=== PATIENT | female | born 1950 | race Caucasian/White ===

== ENCOUNTER → 2017-02-09 | Outpatient (REF) | payer MEDICARE, SELFPAY | LOC: M LAB REF 13:51 | DX: L82.1 Other seborrheic keratosis (principal) | CPT/HCPCS: 88305 ==

== ENCOUNTER → 2019-05-28 | Outpatient (CLI) | payer MEDICARE ==
--- NOTE | 2019-05-30 02:28 | HOLTMON ---
[facility] Test Date: 2019-05-28 Pat Name: ALAN CLAROS Department: Room: - Gender: Female Automobile Sales Consultant: Mirtha Slater/ALEJANDRA CROWDER : 1950 Requested By: HÉCTOR Ann PA-C Order Number: [id number] Reading MD: Maykel Oliveros Interpretive Statements Patient had a 24 hour holter monitor for syncope. There was minimal artifact. Underlying rhythm was sinus varying from 29-147 beats per minute. There were no significant pauses. Patient experienced 64 ventricular ectopic beats and 27 supraventricular ectopic beats. Patient did not record any symptoms in the diary. Notable is that the patient's low rate was likely during sleep. Patient's elevated rate was not correlated with symptoms. This patient may benefit from an event or loop recorder to better capture in frequent events, if clinically indicated. Electronically Signed on 05-30-2019 2:28:05 EDT by Maykel Oliveros
== END ==
LOC: M EKG 11:28
PROVIDERS: ATTEND Physician Assistant Medical
DX: R55 Syncope and collapse (principal)